=== PATIENT | male | born 1940 | race Caucasian/White ===

== ENCOUNTER 2016-11-29 07:20 | Day surgery (SDC) | payer OTHER ==
[~2016-11-29] VITALS: Ht 180.3 cm; Wt 74.4 kg
[~2016-11-29 07:20] MED LIST: ALLO100T PO; ATOR20TA PO; FURO20TA3 PO; LOSA100T27 PO; METO25TA3 PO; POTA1TAB64 PO; TRAZ50TA2 PO; WARF4TAB33 PO; WARF6TAB21 PO
[2016-11-29] MEDS ORDERED: IODIXANOL 320MG/ML 100ML BTL IV ONE (07:22)
[2016-11-29] MEDS ORDERED: LIDOCAINE 2%HCL (LOCAL ANESTH.) INJ 20ML MDV ONE (07:22)
[2016-11-29 08:41] LABS: INR 1.27 (0.9-1.15); Prothrombin Time 13.9 sec (9.37-12.3)
[2016-11-29] MEDS ORDERED: MIDAZOLAM HCL 1MG/1ML-2 ML VIAL ONE (08:52)
[2016-11-29] MEDS ORDERED: VERAPAMIL 2.5MG/ML INJ 2ML VIAL IV ONE (08:52)
[2016-11-29] MEDS ORDERED: fentaNYL CITRATE 100 MCG/2 ML VL ONE (08:52)
[2016-11-29] MEDS ORDERED: ANGIOMAX 250 MG VIAL IV ONE (08:53)
[2016-11-29] MEDS ORDERED: EPTIFIBATIDE INJ (2MG/ML) 10ML VIAL IV ONE (08:53)
[2016-11-29] MEDS ORDERED: SODIUM CHL 0.9% 0 ML ONE (08:54)
[2016-11-29] MEDS ORDERED: FUROSEMIDE 20 MG/2 ML VIAL ONE (09:10)
[2016-11-29] MEDS ORDERED: HEPARIN SODIUM (PORCINE) 5000 UNITS/ML 1ML VIAL ONE (09:23)
[2016-12-31] MEDS ORDERED: DOCU100C8 PO (13:40)
[2016-12-31] MEDS ORDERED: FER325T PO (13:40)
[2016-12-31] MEDS ORDERED: POTA20TA53 PO (13:40)
[2016-12-31] MEDS ORDERED: TRAM50TA2 PO ×2 (13:40→16:58)
[2016-12-31] MEDS ORDERED: PANT40T PO (13:40)
[2016-12-31] MEDS ORDERED: ASPI81CH43 PO ×2 (13:40→16:43)
[2016-12-31] MEDS ORDERED: ALL100T PO (13:40)
[2016-12-31] MEDS ORDERED: FURO40TA4 PO (13:40)
[2017-01-04] MEDS ORDERED: AMIO200T33 PO (12:00)
== END 2016-11-29 13:30 | disposition home or self-care (01) ==
LOC: CATH 07:20
PROVIDERS: ATTEND Internal Medicine
DX: I25.10 Atherosclerotic heart disease of native coronary artery without angina pectoris (principal); I35.0 Nonrheumatic aortic (valve) stenosis
CPT/HCPCS: 36415; 85610; 93458; C1760; C1769; C1894; J1644; J2250; J3010; J7030; Q9967; 99152

== ENCOUNTER 2024-02-07 09:30 | Inpatient (IN) | payer OTHER ==
[~2024-02-07] VITALS: Ht 180.3 cm; Wt 87.7 kg
[~2024-02-07 09:30] MED LIST changes: +ALL100T PO; -ALLO100T PO; +AMIO200T33 PO; +ASPI81CH43 PO; -ATOR20TA PO; +DOCU-265 PO; +FER325T PO; -FURO20TA3 PO; +FURO40TA4 PO; -LOSA100T27 PO; -METO25TA3 PO; +PANT40T PO; +POTA-220 PO; -POTA1TAB64 PO; +TRAM50TA2 PO; +TRAZ-227 PO; -TRAZ50TA2 PO; +WARF-112 PO; +WARF-113 PO; -WARF4TAB33 PO; -WARF6TAB21 PO
[2024-02-07 10:37] LABS: Urine Bacteria None Seen /hpf (None Seen); Urine WBC None Seen /hpf (0 - 3)
[2024-02-07] MEDS: SODIUM CHLORIDE 0.9% 1,000 ML IV ONE (10:49)
[2024-02-07 10:51] LABS: Urine Blood Negative /uL (Negative); Urine Clarity Clear (Clear); Urine Protein, UAD Negative (Negative); Urine Specific Gravity 1.005 (1.001-1.035); Urine Urobilinogen Normal (Negative)
[2024-02-07 10:52] LABS: Urine Color Straw (Yellow)
[2024-02-07 11:13] LABS: Basophils # (auto) 0 10 ^3/uL (0-0.2); Basophils % (auto) 0.6 % (0.0-2.0); Eosinophils # (auto) 0.2 10 ^3/uL (0-0.8); Eosinophils % (auto) 2.4 % (0.0-7.0); Hemoglobin 11.6 g/dL (13.5-17.5); Lymphocytes # (auto) 0.7 10 ^3/uL (0.4-5.4); Lymphocytes % (auto) 9.2 % (10.0-50.0); Mean Corpuscular Hemoglobin 32.6 pg (28.0-32.0); Neutrophils # (auto) 5.9 10 ^3/uL (1.6-8.6); Neutrophils % (auto) 74.8 % (37.0-80.0); Platelet Count (auto) 169 10^3/uL (140-450); Red Blood Cells 3.54 10^6/uL (4.5-5.90); Red Cell Distribution Width 16.2 % (11.8-14.3); White Blood Cell 7.9 10^3/uL (4.4-10.8)
[2024-02-07 11:48] LABS: Alanine Aminotransferase 17 U/L (7-40); Albumin 3.8 g/dL (3.2-4.8); Alkaline Phosphatase 164 U/L (46-116); Anion Gap 3 (5-15); Aspartate Aminotransferase 17 U/L (13-40); BUN/Creatinine Ratio 13.7 (10.0-20.0); Bilirubin, Total 1.6 mg/dL (0.2-1.0); Blood Urea Nitrogen 13 mg/dL (9-23); Carbon Dioxide 33 mmol/L (20-30); Chloride 90 mmol/L (98-107); Glucose 107 mg/dL (74-106); Magnesium 1.7 mg/dL (1.6-2.6); Sodium 126 mmol/L (136-145)
[2024-02-07 12:22] VITALS: PULSE 81; RESP 14; O2SAT 96
[2024-02-07] MEDS: IBUPROFEN 600 MG TAB PO ONE (12:28)
[2024-02-07] MEDS: cefTRIAXone 1GM/50ML D5W 50 ML IV ONE (13:45)
[2024-02-07] MEDS ORDERED: ONDANSETRON HCL 4 MG/2 ML VIAL IV PRN (17:45)
[2024-02-07] MEDS ORDERED: MORPHINE SULFATE INJ 2 MG/ml SYRG IV PRN (17:45)
[2024-02-07] MEDS ORDERED: NITROGLYCERIN 0.4 MG SL TAB SL PRN (17:45)
[2024-02-07] MEDS ORDERED: ACETAMINOPHEN 325 MG TAB PO PRN (17:45)
[2024-02-07] MEDS: FUROSEMIDE 40 MG/4 ML VIAL IV SCH (18:00)
[2024-02-07] MEDS: AZITHROMYCIN 500MG/ 250ML 250 ML IV SCH (18:01)
[2024-02-07] MEDS: HYDROcodone-ACET 5/325MG TAB PO PRN (18:46)
[2024-02-07 21:43] VITALS: BP 137/77; PULSE 90; RESP 24; TEMP 98; O2SAT 96
[2024-02-07] MEDS ORDERED: HYDR25TA4 PO (22:28)
[2024-02-07] MEDS ORDERED: MELO15TA29 PO (22:34)
[2024-02-07] MEDS ORDERED: FLUT1AER3 IN (22:34)
[2024-02-07] MEDS ORDERED: MULT-1018 PO (22:34)
[2024-02-07] MEDS ORDERED: CYAN100056 PO (22:34)
[2024-02-07] MEDS ORDERED: CARV6.2517 PO (22:34)
[2024-02-07] MEDS ORDERED: BUSP7.5T8 PO (22:34)
[2024-02-07] MEDS ORDERED: LOSA-534 PO (22:34)
[2024-02-08] VITALS (8 sets, daily range): BP systolic 99–139; BP diastolic 41–76; PULSE 73–98; RESP 18–21; TEMP 97.6–98.1; O2SAT 92–97
[2024-02-08] MEDS: cefTRIAXone 1GM/50ML D5W 50 ML IV SCH (09:42)
[2024-02-08 11:24] LABS: Basophils # (auto) 0 10 ^3/uL (0-0.2); Basophils % (auto) 0.3 % (0.0-2.0); Eosinophils # (auto) 0.2 10 ^3/uL (0-0.8); Eosinophils % (auto) 2.4 % (0.0-7.0); Hematocrit 37.2 % (41.0-53.0); Hemoglobin 12.4 g/dL (13.5-17.5); Lymphocytes # (auto) 0.5 10 ^3/uL (0.4-5.4); Lymphocytes % (auto) 5.7 % (10.0-50.0); Mean Corpuscular Hemoglobin 32.2 pg (28.0-32.0); Mean Corpuscular Hgb Conc. 33.2 g/dL (32.0-36.0); Mean Corpuscular Volume 96.8 fL (80.0-100.0); Monocytes % (auto) 11.6 % (0.0-12.0); Neutrophils # (auto) 6.8 10 ^3/uL (1.6-8.6); Platelet Count (auto) 200 10^3/uL (140-450); Red Blood Cells 3.85 10^6/uL (4.5-5.90); Red Cell Distribution Width 16.3 % (11.8-14.3); White Blood Cell 8.5 10^3/uL (4.4-10.8)
[2024-02-08 11:39] LABS: Anion Gap 1 (5-15); Carbon Dioxide 39 mmol/L (20-30); Chloride 90 mmol/L (98-107); Sodium 130 mmol/L (136-145)
[2024-02-08 11:40] LABS: Calcium 9.8 mg/dL (8.7-10.4)
[2024-02-08 11:45] LABS: BUN/Creatinine Ratio 10.5 (10.0-20.0); Blood Urea Nitrogen 10 mg/dL (9-23); Glucose 129 mg/dL (74-106); Triglycerides 48 mg/dL (< 150)
[2024-02-08 11:46] LABS: LDL Cholesterol 65 mg/dL (< 100); Magnesium 1.7 mg/dL (1.6-2.6)
[2024-02-08 11:47] LABS: Cholesterol 177 mg/dL (< 200); HDL Cholesterol 92 mg/dL (40-59)
[2024-02-08] MEDS: AMIODARONE HCL 200 MG TAB PO ONE (12:09)
[2024-02-08] MEDS: CARVEDILOL 3.125 MG TAB PO ONE (12:10)
[2024-02-08] MEDS: LOSARTAN POTASSIUM 25 MG TAB PO ONE (12:12)
[2024-02-08] MEDS: FUROSEMIDE INJECTION 100 MG in D5W 5% 100 ML IV SCH (12:14)
[2024-02-08] MEDS: ENOXAPARIN SOD 100 MG/1 ML SYRINGE SC ONE (12:21)
[2024-02-08] MEDS: EMPAGLIFLOZIN 10 MG TAB PO SCH (13:15)
[2024-02-08] MEDS ORDERED: ALBU2TAB11 INH (13:46)
[2024-02-08] MEDS ORDERED: FLUT1AER17 IN (13:46)
[2024-02-08] MEDS: CARVEDILOL 3.125 MG TAB PO SCH (22:00)
[2024-02-08] MEDS: MORPHINE SULFATE INJ 2 MG/ml SYRG IV PRN (23:19)
[2024-02-08] MEDS: ATORVASTATIN 20 MG TAB PO SCH (23:38)
[2024-02-08] MEDS: ENOXAPARIN SOD 100 MG/1 ML SYRINGE SC SCH (23:42)
[2024-02-08] MEDS: AMIODARONE HCL 200 MG TAB PO SCH (23:45)
[2024-02-09 01:00] VITALS: BP 108/51; PULSE 96; RESP 19; TEMP 98.4; O2SAT 94
[2024-02-09 05:00] VITALS: BP 97/51; PULSE 98; RESP 17; TEMP 98.8; O2SAT 94
[2024-02-09 09:00] VITALS: BP 117/63; PULSE 95; RESP 18; TEMP 98; O2SAT 94
[2024-02-09] MEDS: ASPirin 81 mg TAB PO SCH (09:53)
[2024-02-09] MEDS: LOSARTAN POTASSIUM 25 MG TAB PO SCH (09:53)
[2024-02-09] MEDS: DOCUSATE SOD 100 MG CAP PO PRN (09:56)
[2024-02-09] MEDS: FLUTICASONE FUROATE IN SCH (09:57)
[2024-02-09] MEDS: VILANTEROL IN SCH (09:57)
[2024-02-09] MEDS: UMECLIDINIUM IN SCH (09:57)
[2024-02-09] MEDS: ENOXAPARIN SOD 100 MG/1 ML SYRINGE SC SCH (10:50)
[2024-02-09 13:00] VITALS: BP 111/62; PULSE 95; RESP 18; TEMP 98.2; O2SAT 93
[2024-02-09] MEDS: POTASSIUM EFFERVESENT TAB 25 MEQ PO ONE (13:40)
[2024-02-09] MEDS: POTASSIUM CHL 20MEQ/100ML 100 ML IV SCH (13:43)
[2024-02-09] MEDS ORDERED: EMPA1TAB PO (13:47)
[2024-02-09] MEDS ORDERED: POTA-215 PO (13:47)
[2024-02-09] MEDS ORDERED: FURO1TAB31 PO ×2 (13:47)
[2024-02-09] MEDS ORDERED: AMIO200T13 PO (13:47)
[2024-02-09] MEDS: metOLazone 5 MG TAB PO ONE (13:50)
[2024-02-09 16:44] VITALS: BP 102/57; PULSE 87
== END 2024-02-09 17:52 | disposition home or self-care (01) | DRG 177 ==
LOC: ER 09:33 → TELE 17:38 → TELE-WESTW 21:43
PROVIDERS: ADMIT Internal Medicine; ATTEND Internal Medicine
DX: J15.69 Pneumonia due to other Gram-negative bacteria (principal); I50.43 Acute on chronic combined systolic (congestive) and diastolic (congestive) heart failure; I13.0 Hypertensive heart and chronic kidney disease with heart failure and stage 1 through stage 4 chronic kidney disease, or unspecified chronic kidney disease; E87.1 Hypo-osmolality and hyponatremia; J15.9 Unspecified bacterial pneumonia; I48.0 Paroxysmal atrial fibrillation; I25.10 Atherosclerotic heart disease of native coronary artery without angina pectoris; E78.5 Hyperlipidemia, unspecified; D49.0 Neoplasm of unspecified behavior of digestive system; M10.9 Gout, unspecified; E66.9 Obesity, unspecified; E11.22 Type 2 diabetes mellitus with diabetic chronic kidney disease; N18.9 Chronic kidney disease, unspecified; I35.0 Nonrheumatic aortic (valve) stenosis; Z95.1 Presence of aortocoronary bypass graft; Z95.2 Presence of prosthetic heart valve; Z88.0 Allergy status to penicillin; Z91.041 Radiographic dye allergy status; Z68.27 Body mass index [BMI] 27.0-27.9, adult; Z87.891 Personal history of nicotine dependence; R22.1 Localized swelling, mass and lump, neck
CPT/HCPCS: 36415; 71045; 80048; 80053; 80061; 81001; 83036; 83735; 83880; 84443; 84484; 85025; 87040; 93005; 93306; 96361; 96365; 97163; G0378; J3480; J7060

== ENCOUNTER 2024-12-09 08:47 | Inpatient (IN) | payer OTHER ==
[~2024-12-09] VITALS: Ht 177.8 cm; Wt 85.1 kg
[~2024-12-09 08:47] MED LIST changes: +ALBU2TAB11 INH; +AMIO200T13 PO; -AMIO200T33 PO; +BUSP7.5T8 PO; +CARV6.2517 PO; +CYAN100056 PO; -DOCU-265 PO; +EMPA1TAB PO; -FER325T PO; +FLUT1AER17 IN; +FLUT1AER3 IN; +FURO1TAB31 PO; -FURO40TA4 PO; +HYDR25TA4 PO; +LOSA-534 PO; +MELO15TA29 PO; +MULT-1018 PO; -PANT40T PO; +POTA-215 PO; -POTA-220 PO; -TRAM50TA2 PO; -TRAZ-227 PO; -WARF-112 PO; -WARF-113 PO
--- NOTE | 2024-12-09 09:28 | ED.PDOC ---
Musculoskeletal HPI Comments 84 year old male presents to the ED with a chief complaint of bilateral lower extremities swelling onset 1 week. PMHx COPD, CHF, Gout, HTN, HLD, DM, cancer. Patient states he has been experiencing bilateral lower extremities swelling, has been taking double dose of Lasix with no improvement of symptoms. Has appointment with Top Lift Cutter, Dr. Varner on 12/15/24. Denies headache, dizziness, nausea, vomiting, chest pain, shortness of breath, fevers, chills. No other symptoms or modifying factors present at this time. Chief Complaint: Lower Extremity Time Seen by MD: 09:00 Reviewed Notes: Medications, Allergies Allergies: Coded Allergies: Penicillins (Verified Allergy, Unknown, 12/16/16) Uncoded Allergies: IV CONTRAST (Allergy, Mild, 12/16/16) Home Meds Active Scripts Potassium Chloride (Klor-Con M10) 10 Meq Tab, 1 TAB PO DAILY, #60 TAB 5 Refills Prov:NOHEMI RANDOLPH MD 02/09/24 Furosemide (Lasix) 40 Mg Tab, 40 MG PO DAILY, #30 TAB Prov:NOHEMI RANDOLPH MD 02/09/24 Furosemide (Lasix) 40 Mg Tab, 40 MG PO BID, #14 TAB Prov:NOHEMI RANDOLPH MD 02/09/24 Empagliflozin (Jardiance) 10 Mg Tab, 10 MG PO DAILY, #30 TAB Prov:NOHEMI RANDOLPH MD 02/09/24 Amiodarone HCl (Amiodarone HCl) 200 Mg Tab, 200 MG PO Q12HR for 30 Days, #60 TAB Prov:NOHEMI RANDOLPH MD 02/09/24 Aspirin (Asa) 81 Mg Ch, 81 MG PO DAILY for 120 Days Prov:ETHAN GILLESPIE MD 12/31/16 Allopurinol (ZYLOPRIM TABLET) 100 Mg Tb, 100 MG PO DAILY for 30 Days Prov:ETHAN GILLESPIE MD 12/31/16 Reported Medications Fukkcmigbgd-Xgtiywbfqmmh-Gniuv (Trelegy Ellipta 200-62.5-25 Mcg/INH) 1 Aer Aer, 1 AER IN DAILY, AER 02/08/24 Albuterol Sulfate (Albuterol Sulfate) 2 Mg Tab, 90 MCG INH DAILY, MG 02/08/24 Cyanocobalamin (B-12) 1,000 Mcg Cap, 1000 MCG PO, CAP 02/07/24 Multiple Vitamin (Multivitamins) Tab, 1 TAB PO DAILY, #90 TAB 3 Refills 02/07/24 Buspirone Hcl (Buspirone Hcl) 7.5 Mg Tab, 1 TAB PO BID, #60 TAB 3 Refills 02/07/24 Losartan Potassium (Losartan Potassium) 50 Mg Tab, 50 TAB PO DAILY, #30 TAB 5 Refills 02/07/24 Carvedilol (Coreg) 6.25 Mg Tab, 1 TAB PO BID, #180 TAB 1 Refill 02/07/24 Ezfviagwkjg-Bpnjzojqxljq-Gwymq (Trelegy Ellipta 100-62.5-25 Mcg/INH) 1 Aer Aer, 1 AER IN, AER 02/07/24 Meloxicam (Meloxicam) 15 Mg Tab, 1 TAB PO DAILY, #30 TAB 2 Refills 02/07/24 Hydrochlorothiazide (Hydrochlorothiazide) 25 Mg Tab, 1 TAB PO DAILY, #30 TAB 5 Refills 02/07/24 Information Source: Patient Mode of Arrival: Ambulatory Location: Bilateral Extremity Location: Leg Timing: Weeks Prehospital treatment: None Severity: Moderate Able to Move Extremity: Yes Bear Weight: Limited Pain: Moderate Mechanism: Spontaneous Onset of Symptoms: Spontaneous Symptoms: Swelling DVT Risk Factors: CHF Associated signs and symptoms: Swelling Past Medical History PAST MEDICAL HISTORY: CHF, COPD, DM, Gout, High Lipids, HTN Surgical History: CABG Family History Family History: Reviewed,noncontributory to illness Social History Smoker: Non-Smoker Alcohol: Denies ETOH Use Drugs: Denies Drug Use Lives In: Home Constitutional: denies: chills, diaphoresis, fatigue, fever, malaise, sweats, weakness, others EENTM: denies: blurred vision, double vision, ear bleeding, ear discharge, ear drainage, ear pain, ear ringing, eye pain, eye redness, hearing loss, mouth pain, mouth swelling, nasal discharge, nose bleeding, nose congestion, nose pain, photophobia, tearing, throat pain, throat swelling, voice changes, others Respiratory: denies: cough, hemoptysis, orthopnea, SOB at rest, shortness of breath, SOB with excertion, stridor, wheezing, others Cardiovascular: denies: chest pain, dizzy spells, diaphoresis, Dyspnea on exertion, edema, irregular heart beat, left arm pain, lightheadedness, palpitations, PND, syncope, others Gastrointestinal: denies: abdomen distended, abdominal pain, blood streaked bowels, constipated, diarrhea, dysphagia, difficulty swallowing, hematemesis, melena, nausea, poor appetite, poor fluid intake, rectal bleeding, rectal pain, vomiting, others Genitourinary: denies: burning, dysuria, flank pain, frequency, hematuria, incontinence, penile discharge, penile sore, pain, testicle pain, testicle swelling, urgency, others Neurological: denies: dizziness, fainting, headache, left sided numbness, left sided weakness, numbness, paresthesia, pre-existing deficit, right sided numbness, right sided weakness, seizure, speech problems, tingling, tremors, weakness, others Musculoskeletal: reports: others (bilateral leg swelling); denies: back pain, gout, joint pain, joint swelling, muscle pain, muscle stiffness, neck pain Integumetry: denies: bruises, change in color, change in hair/nails, dryness, laceration, lesions, lumps, rash, wounds, others Allergic/Immunocompromised: denies: Difficulty Healing, Frequent Infections, Hives, Itching, others Hematologic/Lymphatic: denies: anemia, blood clots, easy bleeding, easy bruising, swollen glands, others Endocrine: denies: excessive hunger, excessive sweating, excessive thirst, excessive urination, flushing, intolerance to cold, intolerance to heat, unexplained weight gain, unexplained weight loss, others Psychiatric: denies: anxiety, bipolar disorder, depression, hopeless, panic disorder, schizophrenia, sleepless, suicidal, others All Other Systems: Reviewed and Negative Physical Exam General Appearance: Normal HEENT: Normal ENT Inspection, Pharynx Normal, TMs Normal Neck: Full Range of Motion, Non-Tender, Normal, Normal Inspection Respiratory: Chest Non-Tender, Lungs Clear, No Accessory Muscle Use, No Respiratory Distress, Normal Breath Sounds Cardiovascular: No Edema, No JVD, No Murmur, No Gallop, Normal Peripheral Pulses, Regular Rate/Rhythm Breast Exam: Deferred Gastrointestinal: No Organomegaly, Non Tender, No Pulsatile Mass, Normal Bowel Sounds, Soft Genitalia: Deferred Pelvic: Deferred Rectal: Deferred Extremities: Other (2+ pitting edema) Musculoskeletal : Location: Bilateral Extremity Location: Leg (2+ pitting edema on bilateral lower extremities) Apperance: Normal Neurologic: Alert, police inspector II-XII nml as Tested, No Motor Deficits, Normal Affect, Normal Mood, No Sensory Deficits Cerebellar Function: Normal Reflexes: Normal Skin: Dry, Normal Color, Warm Lymphatic: No Adenopathy Was a procedure done? Was a procedure done?: No Differential Diagnosis EXT Differential Diagnosis: CHF, Compartment Syndrome X-Ray, Labs, Meds, VS Vital Signs Date Time Temp Pulse Resp B/P (MAP) Pulse Ox O2 Delivery O2 Flow Rate FiO2 12/09/24 09:40 102 12/09/24 09:07 98.2 104 17 119/74 (89) 96 98.2 Lab Test 12/09/24 09:33 Range/Units White Blood Count 7.6 4.4-10.8 10^3/uL Red Blood Count 3.67 L 4.5-5.90 10^6/uL Hemoglobin 12.2 L 13.5-17.5 g/dL Hematocrit 35.7 L 41.0-53.0 % Mean Corpuscular Volume 97.2 80.0-100.0 fL Mean Corpuscular Hemoglobin 33.3 H 28.0-32.0 pg Mean Corpuscular Hemoglobin Concent 34.2 32.0-36.0 g/dL Red Cell Distribution Width 15.3 H 11.8-14.3 % Platelet Count 209 140-450 10^3/uL Mean Platelet Volume 7.3 6.9-10.8 fL Neutrophils (%) (Auto) 73.3 37.0-80.0 % Lymphocytes (%) (Auto) 11.5 10.0-50.0 % Monocytes (%) (Auto) 11.3 0.0-12.0 % Eosinophils (%) (Auto) 3.3 0.0-7.0 % Basophils (%) (Auto) 0.6 0.0-2.0 % Neutrophils # (Auto) 5.5 1.6-8.6 10 ^3/uL Lymphocytes # (Auto) 0.9 0.4-5.4 10 ^3/uL Monocytes # (Auto) 0.9 0-1.3 10 ^3/uL Eosinophils # (Auto) 0.2 0-0.8 10 ^3/uL Basophils # (Auto) 0 0-0.2 10 ^3/uL Nucleated Red Blood Cells 0.1 % Sodium Level 127 L 136-145 mmol/L Potassium Level 4.0 3.5-5.1 mmol/L Chloride Level 88 L 98-107 mmol/L Carbon Dioxide Level 33 H 20-31 mmol/L Anion Gap 6 5-15 Blood Urea Nitrogen 29 H 9-23 mg/dL Creatinine 1.38 H 0.700-1.30 mg/dL Glomerular Filtration Rate Calc 50 >90 mL/min BUN/Creatinine Ratio 21.0 H 10.0-20.0 Serum Glucose 100 74-106 mg/dL Calcium Level 10.3 8.7-10.4 mg/dL Troponin I High Sensitivity 16 </=54 ng/L B-Type Natriuretic Peptide 109.53 0-100 pg/mL [place] [id number] Ph: [phone] DIAGNOSTIC IMAGING Diagnostic Imaging Report : [id number] Signed PATIENT: DAREN PEREZ ACCT: [id number] UNIT: [id number] : 1940 LOC: ER ROOM / BED: / AGE / SEX: 84 / M ADM STATUS: REG ER SERVICE 8 ORDERING PHYSICIAN: CAESAR PIZARRO MD PROCEDURE(s): CXRP - CHEST PORTABLE REASON: sob ORDER NUMBER(s): [id number], ACCESSION NUMBER(s): [id number] CLINICAL INFORMATION: Shortness of breath. TECHNIQUE: Single AP portable chest radiograph was obtained. COMPARISON: XY CHEST PORTABLE on DOS: 02/08/24, XY CHEST XRAY 1 VIEW on DOS: 02/06 FINDINGS: Lungs: Blunting of the right costophrenic angle suggesting small right pleural effusion with overlying atelectasis. No focal consolidation. No pneumothorax. Cardiac: Heart size is within normal limits. Postsurgical changes of prior CABG and aortic valve replacement. Pulmonary vasculature: Unremarkable. Mediastinum/sandro: Dense atherosclerotic calcification of the aortic arch. Bones: No acute osseous abnormality identified. Other: No other significant findings. IMPRESSION: 1. Small right pleural effusion with overlying atelectasis. 2. No focal consolidation. No pneumothorax. 3. Additional findings as described above. ATED BY: NICHOLAS BARTLETT DO DICTATED DATE/TIME: 12/09/24941 SIGNED BY: NICHOLAS BARTLETT DO SIGNED DATE/TIME: 12/09/24941 CC: Time of 1ST Reevaluation: 09:30 Reevaluation 1ST: Unchanged Patient Education/Counseling: Diagnosis, Treatment, Prognosis Family Education/Counseling: No Family Present Departure 1 Departure Time of Disposition: 10:52 (Patient presented with shortness of breath that was concerning for possible STEMI, ACS, PE, Pneumonia, Muscle Strain, COPD, Dissection, Acute on Chronic systolic and Diastolic dysfunction. Data: 1. I ordered and reviewed the result of at least 3 labs including a CBC, BMP, and Troponin. 2. I independently interpreted the following tests: EKG which shows sinus arrhthmia and Chest X-ray which shows cardiomegaly.Risk:This patient has a high risk of morbidity due to further diagnostic testing or treatment and may suffer from an acute cardiac or respiratory disorder but is most consitent with an acute chf exacerbation. Patient should be admitted for further workup and possible expert consultation. ) Impression: Primary Impression: Acute on chronic systolic heart failure Additional Impressions: Shortness of breath Lower extremity edema Disposition: ADMITTED INPATIENT Admit to: Med Surg Condition: Guarded Critical Care Note Critical Care Time?: Yes Critical care comment: Shortness of breath Authorized and Performed by: Caesar Pizarro MD Total critical care time: Approximately 42 minutes Due to a high probability of clinically significant, life threatening deterioration, the patient required my highest level of preparedness to intervene emergently and I personally spent this critical care time directly and personally managing the patient. This critical care time included obtaining a history; examining the patient; pulse oximetry; ordering and review of studies; arranging urgent treatment with development of a management plan; evaluation of patient's response to treatment; frequent reassessment; and, discussions with other providers. This critical care time was performed to assess and manage the high probability of imminent, life-threatening deterioration that could result in multi-organ failure. It was exclusive of separately billable procedures and treating other patients and teaching time. Please see my other sections and the rest of the note for further information on patient assessment and treatment. Stability Stability form required: No I personally scribed for CAESAR PIZARRO MD ([email or web address]) on 12/09/24 at 09:28. Electronically submitted by Yaneth Aly ([email or web address]). I personally scribed for CAESAR PIZARRO MD ([email or web address]) on 12/09/24 at 09:57. Electronically submitted by Yaneth Aly ([email or web address]). CAESAR PIZARRO MD Dec 09, 2024 09:28
--- NOTE | 2024-12-09 09:44 | DVH ---
CLINICAL INFORMATION: Shortness of breath. TECHNIQUE: Single AP portable chest radiograph was obtained. COMPARISON: XY CHEST PORTABLE on DOS: 02/08/24, XY CHEST XRAY 1 VIEW on DOS: 02/07/24 FINDINGS: Lungs: Blunting of the right costophrenic angle suggesting small right pleural effusion with overlyin g atelectasis. No focal consolidation. No pneumothorax. Cardiac: Heart size is within normal limits. Postsurgical changes of prior CABG and aortic valve repl acement. Pulmonary vasculature: Unremarkable. Mediastinum/sandro: Dense atherosclerotic calcification of the aortic arch. Bones: No acute osseous abnormality identified. Other: No other significant findings. IMPRESSION: 1. Small right pleural effusion with overlying atelectasis. 2. No focal consolidation. No pneumothorax. 3. Additional findings as described above.
[2024-12-09 09:56] LABS: Basophils # (auto) 0 10 ^3/uL (0-0.2); Basophils % (auto) 0.6 % (0.0-2.0); Eosinophils # (auto) 0.2 10 ^3/uL (0-0.8); Eosinophils % (auto) 3.3 % (0.0-7.0); Hematocrit 35.7 % (41.0-53.0); Hemoglobin 12.2 g/dL (13.5-17.5); Lymphocytes # (auto) 0.9 10 ^3/uL (0.4-5.4); Lymphocytes % (auto) 11.5 % (10.0-50.0); Mean Corpuscular Hemoglobin 33.3 pg (28.0-32.0); Mean Corpuscular Hgb Conc. 34.2 g/dL (32.0-36.0); Mean Corpuscular Volume 97.2 fL (80.0-100.0); Monocytes # (auto) 0.9 10 ^3/uL (0-1.3); Monocytes % (auto) 11.3 % (0.0-12.0); Neutrophils # (auto) 5.5 10 ^3/uL (1.6-8.6); Neutrophils % (auto) 73.3 % (37.0-80.0); Nucleated Red Blood Cells % 0.1 %; Platelet Count (auto) 209 10^3/uL (140-450); Red Blood Cells 3.67 10^6/uL (4.5-5.90); Red Cell Distribution Width 15.3 % (11.8-14.3); White Blood Cell 7.6 10^3/uL (4.4-10.8)
[2024-12-09 10:24] LABS: Anion Gap 6 (5-15); Calcium 10.3 mg/dL (8.7-10.4)
[2024-12-09 10:29] LABS: Glucose 100 mg/dL (74-106)
[2024-12-09 10:34] LABS: Blood Urea Nitrogen 29 mg/dL (9-23); Carbon Dioxide 33 mmol/L (20-31); Chloride 88 mmol/L (98-107); Sodium 127 mmol/L (136-145)
[2024-12-09] MEDS: FUROSEMIDE 40 MG/4 ML VIAL IV ONE (12:41)
[2024-12-09 12:49] VITALS: PULSE 102; RESP 20; O2SAT 96
[2024-12-09 16:00] VITALS: PULSE 102; RESP 20; O2SAT 96
[2024-12-09 16:49] LABS: Urine Bacteria None Seen /hpf (None Seen)
[2024-12-09 17:01] LABS: Urine Blood Negative /uL (Negative); Urine Clarity Clear (Clear); Urine Color Colorless (Yellow); Urine Protein, UAD Negative (Negative); Urine Specific Gravity 1.005 (1.001-1.035); Urine Squamous Epithelial Cell None Seen /hpf (<5); Urine Urobilinogen Normal (Negative)
[2024-12-09] MEDS ORDERED: MORPHINE SULFATE INJ 2 MG/ml SYRG IV PRN (22:45)
[2024-12-09] MEDS ORDERED: NITROGLYCERIN 0.4 MG SL TAB SL PRN (22:45)
[2024-12-09] MEDS ORDERED: ONDANSETRON HCL 4 MG/2 ML VIAL IV PRN (22:45)
[2024-12-09 22:56] VITALS: BP_SYST 131; BP_SYST 132; BP_DIAS 76; BP_DIAS 80; PULSE 102; PULSE 99; RESP 18; RESP 20; TEMP 97.8; TEMP 98.3; O2SAT 96
[2024-12-10] VITALS (8 sets, daily range): BP systolic 98–144; BP diastolic 51–93; PULSE 54–104; RESP 16–18; TEMP 97–97.8; O2SAT 95–97
--- NOTE | 2024-12-10 01:39 | DVHHP2 ---
Admitting Diagnosis: Generalized anasarca, Acute Hyponatremia History of Present Illness History Source: Patient Exam Limitations: No limitations HPI Mr. Giuseppe Jurado is an 84 year old male with a history of COPD, CHF, Gout, HTN, HLD, DM, cancer who presents with a chief complaint of bilateral lower extremities swelling onset x 1 week. Patient states he has been experiencing bilateral lower extremities swelling, has been taking double dose of Lasix with no improvement of symptoms. Has appointment with Boat Driver, Dr. Varner on 12/15/24. However patient reports he has exertional dyspnea and could not wait for his appointment on 12/15. Denies chest pain , headache, dizziness, nausea, vomiting, chest pain, fevers, chills. No other symptoms or modifying factors present at this time. Patient admitted for further evaluation and treatment. Home Meds Active Scripts Potassium Chloride (Klor-Con M10) 10 Meq Tab, 1 TAB PO DAILY, #60 TAB 5 Refills Prov:NOHEMI RANDOLPH MD 02/09/24 Furosemide (Lasix) 40 Mg Tab, 40 MG PO DAILY, #30 TAB Prov:NOHEMI RANDOLPH MD 02/09/24 Furosemide (Lasix) 40 Mg Tab, 40 MG PO BID, #14 TAB Prov:NOHEMI RANDOLPH MD 02/09/24 Amiodarone HCl (Amiodarone HCl) 200 Mg Tab, 200 MG PO Q12HR for 30 Days, #60 TAB Prov:NOHEMI RANDOLPH MD 02/09/24 Aspirin (Asa) 81 Mg Ch, 81 MG PO DAILY for 120 Days Prov:ETHAN GILLESPIE MD 12/31/16 Allopurinol (ZYLOPRIM TABLET) 100 Mg Tb, 100 MG PO DAILY for 30 Days Prov:ETHAN GILLESPIE MD 12/31/16 Reported Medications Qogkrhtofpt-Ocspdbgapxmf-Hxbvd (Trelegy Ellipta 200-62.5-25 Mcg/INH) 1 Aer Aer, 1 AER IN DAILY, AER 02/08/24 Albuterol Sulfate (Albuterol Sulfate) 2 Mg Tab, 90 MCG INH DAILY, MG 02/08/24 Multiple Vitamin (Multivitamins) Tab, 1 TAB PO DAILY, #90 TAB 3 Refills 02/07/24 Buspirone Hcl (Buspirone Hcl) 7.5 Mg Tab, 1 TAB PO BID, #60 TAB 3 Refills 02/07/24 Losartan Potassium (Losartan Potassium) 50 Mg Tab, 50 TAB PO DAILY, #30 TAB 5 Refills 02/07/24 Carvedilol (Coreg) 6.25 Mg Tab, 1 TAB PO BID, #180 TAB 1 Refill 02/07/24 Tjufizryyop-Ntvdaitfkyrm-Iaoku (Trelegy Ellipta 100-62.5-25 Mcg/INH) 1 Aer Aer, 1 AER IN, AER 02/07/24 Meloxicam (Meloxicam) 15 Mg Tab, 1 TAB PO DAILY, #30 TAB 2 Refills 02/07/24 Hydrochlorothiazide (Hydrochlorothiazide) 25 Mg Tab, 1 TAB PO DAILY, #30 TAB 5 Refills 02/07/24 Past Medical History Cardiac: CHF, HTN Pulmonary: COPD Central Nervous System: No pertinent Hx GI: No pertinent Hx Hemotology/Oncology: No pertinent Hx Hepatobiliary: No pertinent Hx Psychiatric: No pertinent Hx Musculoskeletal: No pertinent Hx Rheumotologic: No pertinent Hx Infectious Disease: No peritnent Hx ENT: No pertinent Hx Renal/: No pertinent Hx Endocrine: No pertinent Hx Dermatology: No pertinent Hx Others GOUT Patient Family History: Alcoholism G8 FATHER Hypertension G8 MOTHER Smoker: No Hx (Negative) Alocohol: None Drugs: None Lives with: With family Domestic Violence: Neg Review of Systems Constitutional: No symptom reported Ears, Nose, & Throat: No symptom reported Eyes: No symptom reported Pulmonary/Respiratory: Dyspnea (exertional) Cardiovascular: Edema (bilateral lower extremity ) Gastrointestinal: No symptom reported Genitourinary: No symptom reported Musculoskeletal: No symptom reported Skin: No symptom reported Psychiatric: No symptom reported Endocrine: No symptom reported Hemotologic/Lymphatic: No symptom reported H&P Exam Vital Signs Vital Signs Date Time Temp Pulse Resp B/P (MAP) Pulse Ox O2 Delivery O2 Flow Rate FiO2 12/09/24 22:56 97.8 102 20 131/76 (94) 96 97.8 12/09/24 22:56 Room Air* 0 21 General Appeara: Well developed, Well nourished, Normal Appearance Head Exam: Normal inspection Neck Exam: Normal inspection, Non-tender, Normal alignment Eye Exam: bilateral eye Normal inspection, bilateral eye PERRL, bilateral eye EOMI Ear Exam: bilateral ear Auricle normal Nasal Exam: Normal inspection Mouth: Normal Inspection Pulmonary/Respiratory: Normal inspection, Chest non-tender, Wheezing Cardiovascular/Chest: Normal inspection, Regular rate, Normal Rhythm Peripheral Pulses: 2+ Radial (R), 2+ Radial (L) Abdominal Exam: Normal bowel sounds, Soft Legs: bilateral leg swelling (+4 pitting edema BLE) Ankle Exam: bilateral ankle Swelling Foot: bilateral foot swelling Tendon/ Neuro: Normal sensation, Normal motor function TIP STITCHER Exam: Normal hearing, Normal speech, PERRL Neuro/Mental St: Alert, Oriented Appearance: Appropriate appearance, Appropriate insight Eye contact/ Speech: Cooperative, Good eye contact, Normal speech Thoughts/Psych: Normal thought pattern Skin Exam: Normal inspection, Normal color, Warm/dry Wounds right lower extremity wound Labs/Xrays Labs Test 12/09/24 16:00 12/09/24 13:24 12/09/24 09:33 Range/Units Urine Color Colorless Yellow Urine Clarity Clear Clear Urine pH 7.0 5.0-9.0 Urine Specific [place] 1.005 1.001-1.035 Urine Protein Negative Negative Urine Ketones Negative Negative Urine Blood Negative Negative /uL Urine Nitrite Negative Negative Urine Bilirubin Negative Negative Urine Urobilinogen Normal Negative mg/dL Urine Leukocyte Esterase Negative Negative /uL Urine RBC None seen 0 - 3 /hpf Urine Microscopic WBC 0-3 /HPF Urine Squamous Epithelial Cells None seen <5 /hpf Urine Bacteria None seen None Seen /hpf Urine Glucose Normal Normal mg/dL Troponin I High Sensitivity 14 </=54 ng/L White Blood Count 7.6 4.4-10.8 10^3/uL Red Blood Count 3.67 L 4.5-5.90 10^6/uL Hemoglobin 12.2 L 13.5-17.5 g/dL Hematocrit 35.7 L 41.0-53.0 % Mean Corpuscular Volume 97.2 80.0-100.0 fL Mean Corpuscular Hemoglobin 33.3 H 28.0-32.0 pg Mean Corpuscular Hemoglobin Concent 34.2 32.0-36.0 g/dL Red Cell Distribution Width 15.3 H 11.8-14.3 % Platelet Count 209 140-450 10^3/uL Mean Platelet Volume 7.3 6.9-10.8 fL Neutrophils (%) (Auto) 73.3 37.0-80.0 % Lymphocytes (%) (Auto) 11.5 10.0-50.0 % Monocytes (%) (Auto) 11.3 0.0-12.0 % Eosinophils (%) (Auto) 3.3 0.0-7.0 % Basophils (%) (Auto) 0.6 0.0-2.0 % Neutrophils # (Auto) 5.5 1.6-8.6 10 ^3/uL Lymphocytes # (Auto) 0.9 0.4-5.4 10 ^3/uL Monocytes # (Auto) 0.9 0-1.3 10 ^3/uL Eosinophils # (Auto) 0.2 0-0.8 10 ^3/uL Basophils # (Auto) 0 0-0.2 10 ^3/uL Nucleated Red Blood Cells 0.1 % Sodium Level 127 L 136-145 mmol/L Potassium Level 4.0 3.5-5.1 mmol/L Chloride Level 88 L 98-107 mmol/L Carbon Dioxide Level 33 H 20-31 mmol/L Anion Gap 6 5-15 Blood Urea Nitrogen 29 H 9-23 mg/dL Creatinine 1.38 H 0.700-1.30 mg/dL Glomerular Filtration Rate Calc 50 >90 mL/min BUN/Creatinine Ratio 21.0 H 10.0-20.0 Serum Glucose 100 74-106 mg/dL Calcium Level 10.3 8.7-10.4 mg/dL B-Type Natriuretic Peptide 109.53 0-100 pg/mL Assessment/Plan Problem List: (1) Acute on chronic systolic heart failure (2) Lower extremity edema (3) Shortness of breath Plan This is an 84 year old male with known history of coronary artery disease status post single vessel CABG (internal mammary artery to LAD), severe aortic valve stenosis status post Maze procedure in 2017, CHF with systolic and diastolic dysfunction, who presented to the hospital with bilateral lower extremity edema x 1 week and exertional dyspnea found to have 1. Acute on chronic congestive heart failure exacerbation with systolic and diastolic dysfunction 2. Bilateral lower extremity swelling secondary to 1. 3. CAD status post single vessel CABG, status post Maze procedure for aortic valve stenosis in 2017 4. Hypertension 5. Paroxysmal Afib 6. Hyponatremia Plan Admit to telemetry unit Cardiology consultation, 2D echo Continue diuresis with Lasix IV Strict I&O's, Fluid Restriction, Monitor BP Therapeutic Lovenox GI prophylaxis Monitor electrolytes replenish as needed Discussed all above with patient who verbalizes agreement and understanding of care plan. All questions were answered. Discussed with supervising MD. Plan discussed with: Patient Code Visit Code Visit Total Time (mins): 45 ARASH LISA Dec 10, 2024 01:39 NOHEMI RANDOLPH MD Dec 10, 2024 16:50
[2024-12-10] MEDS: FUROSEMIDE 40 MG/4 ML VIAL IV SCH (01:51)
[2024-12-10] MEDS ORDERED: ACETAMINOPHEN 325 MG TAB PO PRN (02:00)
[2024-12-10] MEDS ORDERED: HYDROcodone-ACET 5/325MG TAB PO PRN (02:00)
[2024-12-10 06:21] LABS: Anion Gap 10 (5-15); Calcium 9.7 mg/dL (8.7-10.4)
[2024-12-10 06:24] LABS: Carbon Dioxide 35 mmol/L (20-31); Chloride 86 mmol/L (98-107); Potassium 3.4 mmol/L (3.5-5.1); Sodium 131 mmol/L (136-145)
[2024-12-10 06:26] LABS: BUN/Creatinine Ratio 19.8 (10.0-20.0); Glucose 97 mg/dL (74-106)
[2024-12-10 06:27] LABS: Magnesium 1.8 mg/dL (1.6-2.6)
[2024-12-10 06:44] LABS: Blood Urea Nitrogen 25 mg/dL (9-23)
[2024-12-10] MEDS: ALLOPURINOL 100 MG TAB PO SCH (09:01)
[2024-12-10] MEDS: ASPirin 81 mg TAB PO SCH (09:02)
[2024-12-10] MEDS: FAMOTIDINE 20 MG TAB PO SCH (09:03)
[2024-12-10] MEDS: MULTIPLE VITAMIN TAB PO SCH (09:03)
[2024-12-10] MEDS: hydroCHLOROthiazide 25 MG TAB PO SCH (09:04)
[2024-12-10] MEDS: ENOXAPARIN SOD 100 MG/1 ML SYRINGE SC SCH (09:05)
[2024-12-10] MEDS: AMIODARONE HCL 200 MG TAB PO SCH (10:00)
[2024-12-10] MEDS: LOSARTAN POTASSIUM 50 MG TAB PO SCH (10:00)
[2024-12-10] MEDS ORDERED: MELOXICAM PO SCH (10:00)
[2024-12-10] MEDS: CARVEDILOL 3.125 MG TAB PO SCH (14:36)
--- NOTE | 2024-12-10 19:42 | DVHSR ---
APPROVED REPORT EXAM: Two-dimensional and M-mode echocardiogram with Doppler and color Doppler. Blood Pressure: 136/75 mmHg INDICATION Heart Failure Surgery/Intervention Valve Replacement: Type: AV CABG: RISK FACTORS Height: 5'10", Weight: 189 DIMENSIONS LVDd4.3 (3.8-5.7cm)LA (2D)4.6 (1.9-4.0cm)Aortic Root (2.0-3.7cm) LVDs2.6 (2.5-4.0cm)LA (MM) (1.9-4.0cm)Aortic Cusp Exc (1.5-2.0cm) EF (%) 69.0 (55-70%)Rt. Atrium4.4 (1.9-4.0cm)Asc. Aorta cm IVSd1.6 (0.7-1.1cm)RV (D) (1.8-2.4cm) PWd1.0 (0.7-1.1cm) Mitral Valve MitralMitral Stenosis E wave0.73m/sMV Mean GR.mmHg E/A ratio0.02D MVAcm2 Aortic Valve Aortic ValveAortic Stenosis V11.15m/Taz Mean GR.11mmHg V22.20m/Taz Peak GR.19mmHg LVOT Diameter1.8 (1.8-2.4cm)Doppler AVA1.33cm2 Tricuspid Valve TR Velocity2.89m/s [id number] Other Information Quality : Technically LimitedRhythm : Technically limited study due to body habitus and patient position. Conclusion LVEF 55-60%, mild lvh RV normal Mild left and right atrial dilation mild pulmonary hypertension Aortic valve not well visualized, no significant hemodynamic disease IVC dilated
[2024-12-11] VITALS (7 sets, daily range): BP systolic 91–112; BP diastolic 44–66; PULSE 75–101; RESP 18–19; TEMP 97.3–98.2; O2SAT 94–98
[2024-12-11 06:40] LABS: Anion Gap 8 (5-15)
[2024-12-11 06:45] LABS: BUN/Creatinine Ratio 17.8 (10.0-20.0); Glucose 95 mg/dL (74-106)
[2024-12-11 06:54] LABS: Blood Urea Nitrogen 24 mg/dL (9-23); Calcium 10.7 mg/dL (8.7-10.4); Carbon Dioxide 39 mmol/L (20-31); Chloride 87 mmol/L (98-107); Potassium 3.4 mmol/L (3.5-5.1); Sodium 134 mmol/L (136-145)
--- NOTE | 2024-12-11 16:41 | DVHDS2 ---
Discharge Summary Date of Admission Dec 09, 2024 at 22:40 Date of Discharge: Dec 11, 2024 Labs/Diagnostic Data: Laboratory Results Test 12/11/24 06:03 12/10/24 05:22 12/09/24 16:00 12/09/24 13:24 Sodium Level 134 mmol/L (136-145) Potassium Level 3.4 mmol/L (3.5-5.1) Chloride Level 87 mmol/L (98-107) Carbon Dioxide Level 39 mmol/L (20-31) Anion Gap 8 (5-15) Blood Urea Nitrogen 24 mg/dL (9-23) Creatinine 1.35 mg/dL (0.700-1.30) Glomerular Filtration Rate Calc 52 mL/min (>90) BUN/Creatinine Ratio 17.8 (10.0-20.0) Serum Glucose 95 mg/dL (74-106) Calcium Level 10.7 mg/dL (8.7-10.4) Magnesium Level 1.8 mg/dL (1.6-2.6) Urine Color Colorless (Yellow) Urine Clarity Clear (Clear) Urine pH 7.0 (5.0-9.0) Urine Specific Buckner 1.005 (1.001-1.035) Urine Protein Negative (Negative) Urine Ketones Negative (Negative) Urine Blood Negative /uL (Negative) Urine Nitrite Negative (Negative) Urine Bilirubin Negative (Negative) Urine Urobilinogen Normal mg/dL (Negative) Urine Leukocyte Esterase Negative /uL (Negative) Urine RBC None seen /hpf (0 - 3) Urine Microscopic WBC /HPF (0-3) Urine Squamous Epithelial Cells None seen /hpf (<5) Urine Bacteria None seen /hpf (None Seen) Urine Glucose Normal mg/dL (Normal) Troponin I High Sensitivity 14 ng/L (</=54) Test 12/09/24 09:33 White Blood Count 7.6 10^3/uL (4.4-10.8) Red Blood Count 3.67 10^6/uL (4.5-5.90) Hemoglobin 12.2 g/dL (13.5-17.5) Hematocrit 35.7 % (41.0-53.0) Mean Corpuscular Volume 97.2 fL (80.0-100.0) Mean Corpuscular Hemoglobin 33.3 pg (28.0-32.0) Mean Corpuscular Hemoglobin Concent 34.2 g/dL (32.0-36.0) Red Cell Distribution Width 15.3 % (11.8-14.3) Platelet Count 209 10^3/uL (140-450) Mean Platelet Volume 7.3 fL (6.9-10.8) Neutrophils (%) (Auto) 73.3 % (37.0-80.0) Lymphocytes (%) (Auto) 11.5 % (10.0-50.0) Monocytes (%) (Auto) 11.3 % (0.0-12.0) Eosinophils (%) (Auto) 3.3 % (0.0-7.0) Basophils (%) (Auto) 0.6 % (0.0-2.0) Neutrophils # (Auto) 5.5 10 ^3/uL (1.6-8.6) Lymphocytes # (Auto) 0.9 10 ^3/uL (0.4-5.4) Monocytes # (Auto) 0.9 10 ^3/uL (0-1.3) Eosinophils # (Auto) 0.2 10 ^3/uL (0-0.8) Basophils # (Auto) 0 10 ^3/uL (0-0.2) Nucleated Red Blood Cells 0.1 % B-Type Natriuretic Peptide 109.53 pg/mL (0-100) Other Laboratory Tests 12/11/24 06:03 12/09/24 09:33 Brief Hx & Hospital Course: This is an 84 year old male with known history of coronary artery disease status post single vessel CABG (internal mammary artery to LAD), severe aortic valve stenosis status post Maze procedure in 2017, CHF with systolic and diastolic dysfunction, who presented to the hospital with bilateral lower extremity edema x 1 week and exertional dyspnea found to have acute on chronic congestive heart failure exacerbation with a diastolic dysfunction. Patient was started on IV diuretics. Patient was seen by Cardiology. Patient is currently generalized anasarca significantly improved and currently stable to be discharged. Both p atient and he is family member at bedside requesting to go home and patient is being discharged under stable condition with close follow up as an outpatient with the PCP as well as Cardiology. Condition at Discharge: Stable Final Diagnosis/Problems List This is an 84 year old male with known history of coronary artery disease status post single vessel CABG (internal mammary artery to LAD), severe aortic valve stenosis status post Maze procedure in 2017, CHF with diastolic dysfunction, who presented to the hospital with bilateral lower extremity edema x 1 week and exertional dyspnea found to have 1. Acute on chronic congestive heart failure exacerbation with systolic and diastolic dysfunction 2. Bilateral lower extremity swelling secondary to 1. 3. CAD status post single vessel CABG, status post Maze procedure for aortic valve stenosis in 2017 4. Hypertension 5. Paroxysmal Afib 6. Hyponatremia Discharge Disposition: Home SNF Discharge Will this Physician continue t: No Discharge Instruct/Medications Diet: Cardiac 2g Na,low cholest Activity: No Restrictions, As Tolerated Follow Up/Referral: Please follow up with Dr. Varner in 1-2 weeks Medications: Resume home medications Discharge Statement: "Patient was advised to return to the ER or call 911 if any headaches, dizziness, shortness of breath, chest pain, abdominal pain, bleeding, fevers, or worsening of medical condition. Patient was counseled about treatment plan, medications, possible side effects, patientverbalized understanding. All questions were answered to the best of my ability. This discharge took greater then 30 minutes in planning, reviewing documentation, counseling the patient, and discussing with other team members." ASSESSMENT ASSESSMENT Assessment This is an 84 year old male with known history of coronary artery disease status post single vessel CABG (internal mammary artery to LAD), severe aortic valve stenosis status post Maze procedure in 2017, CHF with systolic and diastolic dysfunction, who presented to the hospital with bilateral lower extremity edema x 1 week and exertional dyspnea found to have 1. Acute on chronic congestive heart failure exacerbation with systolic and diastolic dysfunction 2. Bilateral lower extremity swelling secondary to 1. 3. CAD status post single vessel CABG, status post Maze procedure for aortic valve stenosis in 2017 4. Hypertension 5. Paroxysmal Afib 6. Hyponatremia Date of Service: Dec 11, 2024 Billing Provider: NOHEMI RANDOLPH MD Common Visit Codes: NOT BILLABLE NOHEMI RANDOLPH MD Dec 11, 2024 16:41
--- NOTE | 2024-12-13 10:21 | ECG ---
[facility] Test Date: 2024-12-09 Test Time: 09:40:11 Pat Name: DAREN PEREZ Department: ER Room: 0219T Gender: M Postal Clerk: : 1940 Requested By: CAESAR PIZARRO Order Number: [id number] Reading MD: Measurements Intervals Webster Rate: 102 P: 16 LA: 155 QRS: 11 QRSD: 105 T: 163 QT: 343 QTc: 447 Interpretive Statements Sinus tachycardia Multiple ventricular premature complexes Repol abnrm suggests ischemia, lateral leads Please click the below link to view image of tracing.
== END 2024-12-11 18:29 | disposition home or self-care (01) | DRG 291 ==
LOC: ER 08:47 → OVERFLOW 22:40 → TELE-CENTR 12-10 01:20
PROVIDERS: ADMIT Internal Medicine; ATTEND Internal Medicine
DX: I11.0 Hypertensive heart disease with heart failure (principal); I50.43 Acute on chronic combined systolic (congestive) and diastolic (congestive) heart failure; E87.1 Hypo-osmolality and hyponatremia; Z95.1 Presence of aortocoronary bypass graft; I35.0 Nonrheumatic aortic (valve) stenosis; E11.9 Type 2 diabetes mellitus without complications; J44.9 Chronic obstructive pulmonary disease, unspecified; I25.10 Atherosclerotic heart disease of native coronary artery without angina pectoris; I48.0 Paroxysmal atrial fibrillation; M10.9 Gout, unspecified; E78.5 Hyperlipidemia, unspecified; Z87.891 Personal history of nicotine dependence; Z88.0 Allergy status to penicillin; Z79.899 Other long term (current) drug therapy; Z79.82 Long term (current) use of aspirin
CPT/HCPCS: 36415; 71045; 80048; 81001; 83735; 83880; 84484; 85025; 93005; 93306; 96374; 99291; G0378

== ENCOUNTER 2024-12-13 19:23 | Inpatient (IN) | payer OTHER ==
[~2024-12-13] VITALS: Ht 177.8 cm; Wt 86.1 kg
[~2024-12-13 19:23] MED LIST changes: -CYAN100056 PO; -EMPA1TAB PO
[2024-12-13] MEDS: SODIUM CHLORIDE 0.9% 500 ML IV ONE (19:30)
--- NOTE | 2024-12-13 19:30 | ED.PDOC ---
History of Present Illness HPI Comments 84 year old male with a History of CHF, HTN, COPD, and CAD was BIBA for the c/c of a Dizziness. Pt states that he was at home using his walker, when he suddenly started to feel dizzy, then proceeded to experience a mechanical fall. Pt notes that he was admitted here 3x days ago and was told that he would be feeling dizzy. Pt also notes of Alcohol use. EMS notes last BP was 92/60. No other symptoms or modifying factors reported at this time. Time Seen by MD: : Reviewed Notes: Nurses Notes, Vp [employer] Notes, Medications, Allergies Allergies: Coded Allergies: Penicillins (Verified Allergy, Unknown, 12/16/16) Uncoded Allergies: IV CONTRAST (Allergy, Mild, 12/16/16) Home Meds Active Scripts Potassium Chloride (Klor-Con M10) 10 Meq Tab, 1 TAB PO DAILY, #60 TAB 5 Refills Prov:NOHEMI RANDOLPH MD 02/09/24 Furosemide (Lasix) 40 Mg Tab, 40 MG PO DAILY, #30 TAB Prov:NOHEMI RANDOLPH MD 02/09/24 Furosemide (Lasix) 40 Mg Tab, 40 MG PO BID, #14 TAB Prov:NOHEMI RANDOLPH MD 02/09/24 Amiodarone HCl (Amiodarone HCl) 200 Mg Tab, 200 MG PO Q12HR for 30 Days, #60 TAB Prov:NOHEMI RANDOLPH MD 02/09/24 Aspirin (Asa) 81 Mg Ch, 81 MG PO DAILY for 120 Days Prov:ETHAN GILLESPIE MD 12/31/16 Allopurinol (ZYLOPRIM TABLET) 100 Mg Tb, 100 MG PO DAILY for 30 Days Prov:ETHAN GILLESPIE MD 12/31/16 Reported Medications Pwrexqfchml-Hlqxvvarttkq-Tdwvr (Trelegy Ellipta 200-62.5-25 Mcg/INH) 1 Aer Aer, 1 AER IN DAILY, AER 02/08/24 Albuterol Sulfate (Albuterol Sulfate) 2 Mg Tab, 90 MCG INH DAILY, MG 02/08/24 Multiple Vitamin (Multivitamins) Tab, 1 TAB PO DAILY, #90 TAB 3 Refills 02/07/24 Buspirone Hcl (Buspirone Hcl) 7.5 Mg Tab, 1 TAB PO BID, #60 TAB 3 Refills 02/07/24 Losartan Potassium (Losartan Potassium) 50 Mg Tab, 50 TAB PO DAILY, #30 TAB 5 Refills 02/07/24 Carvedilol (Coreg) 6.25 Mg Tab, 1 TAB PO BID, #180 TAB 1 Refill 02/07/24 Eproygkdriw-Ouaefnoffhlb-Rrrep (Trelegy Ellipta 100-62.5-25 Mcg/INH) 1 Aer Aer, 1 AER IN, AER 02/07/24 Meloxicam (Meloxicam) 15 Mg Tab, 1 TAB PO DAILY, #30 TAB 2 Refills 02/07/24 Hydrochlorothiazide (Hydrochlorothiazide) 25 Mg Tab, 1 TAB PO DAILY, #30 TAB 5 Refills 02/07/24 Information Source: Patient, Emergency Med Personnel Mode of Arrival: EMS Severity: Moderate Timing: Days Duration: Since onset, Days Prehospital treatment: None Past Medical History PAST MEDICAL HISTORY: CHF, COPD, DM, Gout, High Lipids, HTN Surgical History: CABG Family History Family History: Reviewed,noncontributory to illness Social History Smoker: Non-Smoker Alcohol: Heavy Drugs: Denies Drug Use Lives In: Home Constitutional: denies: chills, diaphoresis, fatigue, fever, malaise, sweats, weakness, others EENTM: denies: blurred vision, double vision, ear bleeding, ear discharge, ear drainage, ear pain, ear ringing, eye pain, eye redness, hearing loss, mouth pain, mouth swelling, nasal discharge, nose bleeding, nose congestion, nose pain, photophobia, tearing, throat pain, throat swelling, voice changes, others Respiratory: denies: cough, hemoptysis, orthopnea, SOB at rest, shortness of breath, SOB with excertion, stridor, wheezing, others Cardiovascular: denies: chest pain, dizzy spells, diaphoresis, Dyspnea on exertion, edema, irregular heart beat, left arm pain, lightheadedness, palpitations, PND, syncope, others Gastrointestinal: denies: abdomen distended, abdominal pain, blood streaked bowels, constipated, diarrhea, dysphagia, difficulty swallowing, hematemesis, melena, nausea, poor appetite, poor fluid intake, rectal bleeding, rectal pain, vomiting, others Genitourinary: denies: burning, dysuria, flank pain, frequency, hematuria, incontinence, penile discharge, penile sore, pain, testicle pain, testicle swelling, urgency, others Neurological: reports: dizziness; denies: fainting, headache, left sided numbness, left sided weakness, numbness, paresthesia, pre-existing deficit, right sided numbness, right sided weakness, seizure, speech problems, tingling, tremors, weakness, others Musculoskeletal: denies: back pain, gout, joint pain, joint swelling, muscle pain, muscle stiffness, neck pain, others Integumetry: denies: bruises, change in color, change in hair/nails, dryness, laceration, lesions, lumps, rash, wounds, others Allergic/Immunocompromised: denies: Difficulty Healing, Frequent Infections, Hives, Itching, others Hematologic/Lymphatic: denies: anemia, blood clots, easy bleeding, easy bruising, swollen glands, others Endocrine: denies: excessive hunger, excessive sweating, excessive thirst, excessive urination, flushing, intolerance to cold, intolerance to heat, unexplained weight gain, unexplained weight loss, others Psychiatric: denies: anxiety, bipolar disorder, depression, hopeless, panic disorder, schizophrenia, sleepless, suicidal, others All Other Systems: Reviewed and Negative Physical Exam General Appearance: Moderate Distress HEENT: Normal ENT Inspection, Pharynx Normal, TMs Normal Neck: Full Range of Motion, Non-Tender, Normal, Normal Inspection Respiratory: Chest Non-Tender, Lungs Clear, No Accessory Muscle Use, No Respiratory Distress, Normal Breath Sounds Cardiovascular: No Edema, No JVD, No Murmur, No Gallop, Normal Peripheral Pulses, Regular Rate/Rhythm Breast Exam: Deferred Gastrointestinal: No Organomegaly, Non Tender, No Pulsatile Mass, Normal Bowel Sounds, Soft Genitalia: Deferred Pelvic: Deferred Rectal: Deferred Extremities: No calf tenderness, Normal capillary refill, Normal inspection, Normal range of motion, Non-tender, No pedal edema Musculoskeletal : Apperance: Normal Neurologic: Alert, owner/operator II-XII nml as Tested, No Motor Deficits, Normal Affect, Normal Mood, No Sensory Deficits Cerebellar Function: Normal Reflexes: Normal Skin: Dry, Normal Color, Warm Lymphatic: No Adenopathy Was a procedure done? Was a procedure done?: No EKG EKG : Pulse Rate (adult): 84 Landis: Normal Cardiac Rhythm: NSR Block: None ST: Nonsp Differential Dx Considerations may include: Generalized weakness, autonomic dysfunction, generalized electrolyte imbalance X-Ray, Labs, Meds, VS Vital Signs Date Time Temp Pulse Resp B/P (MAP) Pulse Ox O2 Delivery O2 Flow Rate FiO2 12/13/24 20:00 Room Air* 0 21 12/13/24 20:00 97.6 101 18 88/52 (64) 94 97.6 12/13/24 19:56 98.4 60 16 94/58 (70) 97 98.4 12/13/24 19:43 84 12/13/24 19:30 87 Lab Test 12/13/24 20:45 12/13/24 19:40 Range/Units Troponin I High Sensitivity 22 22 </=54 ng/L White Blood Count 9.5 4.4-10.8 10^3/uL Red Blood Count 3.32 L 4.5-5.90 10^6/uL Hemoglobin 11.1 L 13.5-17.5 g/dL Hematocrit 32.0 #L 41.0-53.0 % Mean Corpuscular Volume 96.6 80.0-100.0 fL Mean Corpuscular Hemoglobin 33.5 H 28.0-32.0 pg Mean Corpuscular Hemoglobin Concent 34.7 32.0-36.0 g/dL Red Cell Distribution Width 15.6 H 11.8-14.3 % Platelet Count 187 140-450 10^3/uL Mean Platelet Volume 7.6 6.9-10.8 fL Neutrophils (%) (Auto) 72.3 37.0-80.0 % Lymphocytes (%) (Auto) 12.0 10.0-50.0 % Monocytes (%) (Auto) 11.0 0.0-12.0 % Eosinophils (%) (Auto) 4.2 0.0-7.0 % Basophils (%) (Auto) 0.5 0.0-2.0 % Neutrophils # (Auto) 6.9 1.6-8.6 10 ^3/uL Lymphocytes # (Auto) 1.1 0.4-5.4 10 ^3/uL Monocytes # (Auto) 1.1 0-1.3 10 ^3/uL Eosinophils # (Auto) 0.4 0-0.8 10 ^3/uL Basophils # (Auto) 0 0-0.2 10 ^3/uL Nucleated Red Blood Cells 0.0 % Sodium Level 130 L 136-145 mmol/L Potassium Level 3.3 L 3.5-5.1 mmol/L Chloride Level 86 L 98-107 mmol/L Carbon Dioxide Level 33 H 20-31 mmol/L Anion Gap 11 5-15 Blood Urea Nitrogen 63 H 9-23 mg/dL Creatinine 2.16 H 0.700-1.30 mg/dL Glomerular Filtration Rate Calc 29 >90 mL/min BUN/Creatinine Ratio 29.2 H 10.0-20.0 Serum Glucose 99 74-106 mg/dL Calcium Level 10.0 8.7-10.4 mg/dL B-Type Natriuretic Peptide 132.49 0-100 pg/mL Current Medications Medications (Trade) Dose Ordered Sig/Diony Route Start Time Stop Time Status Last Admin Sodium Chloride 500 ml @ 500 mls/hr Q1H ONCE IV 12/13/24 19:30 12/13/24 20:29 DC 12/13/24 19:30 CAT scan of the head is negative The patient had an IV Hep-Lock The patient was given normal saline at 500 cc bolus The BUN is 63 and the creatinine is 2.16 The patient's CBC is within normal limits The patient's chest x-ray shows: Pending at this time The patient will be admitted at this time The troponin level x2 is within normal range Images Reviewed?: Images reviewed and evaluated by me Time of 1ST Reevaluation: 19:57 Reevaluation 1ST: Unchanged Patient Education/Counseling: Diagnosis, Treatment, Prognosis Family Education/Counseling: No Family Present SEPSIS Sepsis Screen Physician Orders Urinalysis (12/13/24 19:26) Heplock Iv (12/13/24 19:26) Mechanical Supervisor (12/13/24 19:26) Blood Pressure (12/13/24 19:26) Pulse Oximetry (12/13/24 19:26) Electrocardigram (12/13/24 19:26) Troponin-I Hs (12/13/24 22:26) Electrocardigram (12/13/24 20:26) Electrocardigram (12/13/24 22:26) Head Without Contrast (12/13/24 19:26) Chest Portable (12/13/24 21:27) Vital Signs Date Time Temp Pulse Resp B/P (MAP) Pulse Ox O2 Delivery O2 Flow Rate FiO2 6/23/25 20:00 Room Air* 0 21 12/13/24 20:00 97.6 101 18 88/52 (64) 94 97.6 12/13/24 19:56 98.4 60 16 94/58 (70) 97 98.4 12/13/24 19:43 84 12/13/24 19:30 87 Laboratory Tests Test 12/13/24 19:40 White Blood Count 9.5 10^3/uL (4.4-10.8) Medications Medications Dose Ordered Sig/Diony Route Start Time Stop Time Status Last Admin Dose Admin Sodium Chloride 500 ml @ 500 mls/hr Q1H ONCE IV 12/13/24 19:30 12/13/24 20:29 DC 12/13/24 19:30 Departure 1 Departure Time of Disposition: 21:47 Impression: Primary Impression: Autonomic dysfunction Additional Impression: Generalized weakness Disposition: ADMITTED INPATIENT Admit to: Tele Condition: Fair Critical Care Note Critical Care Time?: Yes (45 min-critical care time only) Stability Stability form required: Yes Unstable for transfer: Telemetry monitoring (Telemetry monitoring required), ED Physician Assesment (Clinical assesment) Heart Score Heart Score: Heart Score Response (Comments) Value History N/A 0 EKG N/A 0 Age N/A 0 Risk Factors N/A 0 Troponin N/A 0 Total 0 I personally scribed for FAUSTINO MOBLEY MD ([email or web address]) on 12/13/24 at 19:30. Electronically submitted by Milton Bridges ([email or web address]). I personally scribed for FAUSTINO MOBLEY MD ([email or web address]) on 12/13/24 at 19:40. Electronically submitted by Chris Adams ([email or web address]). FAUSTINO MOBLEY MD Dec 13, 2024 19:30
[2024-12-13 20:00] LABS: Basophils # (auto) 0 10 ^3/uL (0-0.2); Basophils % (auto) 0.5 % (0.0-2.0); Eosinophils # (auto) 0.4 10 ^3/uL (0-0.8); Eosinophils % (auto) 4.2 % (0.0-7.0); Hemoglobin 11.1 g/dL (13.5-17.5); Lymphocytes # (auto) 1.1 10 ^3/uL (0.4-5.4); Mean Corpuscular Hemoglobin 33.5 pg (28.0-32.0); Mean Corpuscular Hgb Conc. 34.7 g/dL (32.0-36.0); Mean Corpuscular Volume 96.6 fL (80.0-100.0); Monocytes # (auto) 1.1 10 ^3/uL (0-1.3); Neutrophils # (auto) 6.9 10 ^3/uL (1.6-8.6); Neutrophils % (auto) 72.3 % (37.0-80.0); Platelet Count (auto) 187 10^3/uL (140-450); Red Blood Cells 3.32 10^6/uL (4.5-5.90); Red Cell Distribution Width 15.6 % (11.8-14.3); White Blood Cell 9.5 10^3/uL (4.4-10.8)
[2024-12-13 20:12] LABS: Anion Gap 11 (5-15)
[2024-12-13 20:17] LABS: BUN/Creatinine Ratio 29.2 (10.0-20.0); Glucose 99 mg/dL (74-106)
[2024-12-13 20:19] LABS: Blood Urea Nitrogen 63 mg/dL (9-23); Carbon Dioxide 33 mmol/L (20-31); Chloride 86 mmol/L (98-107); Potassium 3.3 mmol/L (3.5-5.1); Sodium 130 mmol/L (136-145)
--- NOTE | 2024-12-13 20:51 | DVH ---
EXAM: CT HEAD WITHOUT CONTRAST INDICATION: syncope TECHNIQUE: CT of the head without intravenous contrast. Radiation Dose : 1. Head: CT Dose: CTDI volume is 56.41 mGy. Dose-length product is 1017.14 mGy*cm The dose indicators for CT are the volume Computed Tomography (CT) Dose Index (CTDIvol) and the Dose Length Product (DLP), and are measured in units of mGy and mGy-cm, respectively. These indicators are not patient dose, but values generated from the CT scanner acquisition factors. The report includes radiation exposure data for exposures received during this examination. COMPARISON: None FINDINGS: There is no evidence of acute intracranial hemorrhage, extra-axial collection, mass effect, midline s hift, herniation or hydrocephalus. The ventricles, sulci and cisterns are age appropriate. The albert-white differentiation is intact. Patchy periventricular and subcortical white matter hypoattenuation is nonspecific but may be related to small vessel ischemic disease. The visualized paranasal sinuses and mastoid air cells are clear. The surrounding soft tissues and osseous structures are unremarkable. IMPRESSION: 1. No acute intracranial abnormality. Radiation optimization: All CT scans at this facility use at least one of these dose optimization latrice hniques: automated exposure control mA and/or kV adjustment per patient size (includes targeted exam s where dose is matched to clinical indication) or iterative reconstruction.
[2024-12-13] MEDS ORDERED: MORPHINE SULFATE INJ 2 MG/ml SYRG IV PRN (22:00)
[2024-12-13] MEDS ORDERED: ONDANSETRON HCL 4 MG/2 ML VIAL IV PRN (22:00)
[2024-12-13] MEDS ORDERED: NITROGLYCERIN 0.4 MG SL TAB SL PRN (22:00)
[2024-12-13] MEDS ORDERED: DOCUSATE SOD 100 MG CAP PO PRN (22:00)
[2024-12-13] MEDS ORDERED: HYDROcodone-ACET 5/325MG TAB PO PRN (22:00)
[2024-12-13] MEDS ORDERED: ACETAMINOPHEN 325 MG TAB PO PRN (22:00)
--- NOTE | 2024-12-13 22:35 | DVH ---
CHEST RADIOGRAPH Indication: cxr Technique: Single frontal view of the chest was obtained Comparison: XY CHEST PORTABLE on DOS: 12/09/24, XY CHEST PORTABLE on DOS: 02/08/24, XY CHEST XRAY 1 VIE W on DOS: 02/07/24 FINDINGS: Lines and Tubes: None Lungs: Hyperinflation with possible small right pleural effusion. Pleura: No effusion. No pneumothorax. Cardiomediastinal contours: Unremarkable Bones: No acute osseous abnormality. IMPRESSION: 1. No significant change from 12/09/2024.
[2024-12-13 22:51] LABS: Basophils # (auto) 0.1 10 ^3/uL (0-0.2); Basophils % (auto) 0.8 % (0.0-2.0); Eosinophils # (auto) 0.4 10 ^3/uL (0-0.8); Eosinophils % (auto) 3.7 % (0.0-7.0); Hematocrit 33.4 % (41.0-53.0); Hemoglobin 11.6 g/dL (13.5-17.5); Lymphocytes # (auto) 1.1 10 ^3/uL (0.4-5.4); Lymphocytes % (auto) 10.9 % (10.0-50.0); Mean Corpuscular Hemoglobin 33.4 pg (28.0-32.0); Mean Corpuscular Hgb Conc. 34.6 g/dL (32.0-36.0); Mean Corpuscular Volume 96.5 fL (80.0-100.0); Monocytes # (auto) 0.9 10 ^3/uL (0-1.3); Monocytes % (auto) 9.2 % (0.0-12.0); Neutrophils # (auto) 7.6 10 ^3/uL (1.6-8.6); Neutrophils % (auto) 75.4 % (37.0-80.0); Platelet Count (auto) 188 10^3/uL (140-450); Red Blood Cells 3.46 10^6/uL (4.5-5.90); Red Cell Distribution Width 15.1 % (11.8-14.3); White Blood Cell 10.1 10^3/uL (4.4-10.8)
[2024-12-13 22:53] VITALS: PULSE 94; RESP 14; O2SAT 100
[2024-12-13 23:03] LABS: Anion Gap 10 (5-15); Calcium 9.8 mg/dL (8.7-10.4)
[2024-12-13 23:08] LABS: BUN/Creatinine Ratio 28.6 (10.0-20.0); Glucose 104 mg/dL (74-106)
[2024-12-13 23:11] LABS: Carbon Dioxide 32 mmol/L (20-31); Chloride 89 mmol/L (98-107); Potassium 3.3 mmol/L (3.5-5.1); Sodium 131 mmol/L (136-145)
[2024-12-13 23:12] LABS: Blood Alcohol < 3.0 mg/dL (<10); Blood Urea Nitrogen 55 mg/dL (9-23)
[2024-12-14] VITALS (11 sets, daily range): BP systolic 84–132; BP diastolic 41–72; PULSE 95–104; RESP 14–20; TEMP 97.8–98.4; O2SAT 92–97
[2024-12-14 00:18] LABS: Urine Bacteria None Seen /hpf (None Seen)
[2024-12-14 00:35] LABS: Urine Blood Negative /uL (Negative); Urine Clarity Clear (Clear); Urine Color Light-Yellow (Yellow); Urine Hyaline Cast FEW /lpf (0 - 2); Urine Protein, UAD Negative (Negative); Urine Specific Gravity 1.013 (1.001-1.035); Urine Squamous Epithelial Cell FEW /hpf (<5); Urine Urobilinogen Normal (Negative); Urine WBC < 1 /HPF (0-3); Urine pH 5.5 (5.0-9.0)
--- NOTE | 2024-12-14 00:43 | DVHHP2 ---
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 Patient endorses recently being admitted to the hospital where he was diuresed for congestive heart failure. Patient states he went to use his front wheel wal ker when he suddenly got dizzy and legs gave out from underneath him. When the patient was 1st encountered blood pressure was 92/60. While in the emergency department the patient did receive a bolus normal saline. However patient states he still feels dizzy. Blood pressure after receiving normal saline bolus was 88/52. Patient states exertional shortness of breath has improved. Also endorses swelling of bilateral lower extremities has improved. At this time patient denies fevers, chills, shortness of breath, chest pain, palpitations, nausea, vomiting, head injury, LOC,. Cardiovascular: AFIB, CAD, CHF, hyperipidemia Pulmonary: COPD Psych: Anxiety Smoke: No ALCOHOL: occassional Drugs: None Lives: with Family Review of Systems Constitutional: Yes: Weakness; No: Fever, Chills, Sweats, Malaise, Other Eyes: No: Pain, Vision change, Conjunctivae inflammation, Eyelid inflammation, Other, Redness ENT: No: Ear pain, Ear discharge, Nose pain, Nose discharge, Nose congestion, Mouth pain, Mouth swelling, Throat pain, Throat swelling, Other Respiratory: No: Cough, Dry, Shortness of breath, SOB with excertion, Wheezing, Hemoptysis, Pleuritic Pain, Sputum, Wheezing, Other Cardiovascular: Edema, Lt Headedness; No: Chest Pain, Palpitations, Orthopnea, Paroxysmal Noc. Dyspnea, Other Gastrointestinal: No: Nausea, Vomiting, Abdominal Pain, Diarrhea, Constipation, Melena, Hematochezia, Other Genitourinary: No Dysuria, No Frequency, No Incontinence, No Hematuria, No Retention, No Other Musculoskeletal: No: other, neck pain, shoulder pain, arm pain, back pain, hand pain, leg pain, foot pain Skin: No: Rash, Lesions, Jaundice, Bruising, Other Neurological: No: Weakness, Numbness, Incoordination, Change in speech, Confusion, Seizures, Other Allergies: Coded Allergies: Penicillins (Verified Allergy, Unknown, 12/16/16) Uncoded Allergies: IV CONTRAST (Allergy, Mild, 12/16/16) Medications Current Medications Medications Dose Ordered Sig/Diony Route Start Time Stop Time Status Last Admin Dose Admin Docusate Sodium 100 mg BIDPRN PRN PO 12/13/24 22:00 Acetaminophen 650 mg Q6HP PRN PO 12/13/24 22:00 Acetaminophen/ Hydrocodone Bitart 1 tab Q4HP PRN PO 12/13/24 22:00 Ondansetron HCl 4 mg Q4HP PRN IV 12/13/24 22:00 Nitroglycerin 0.4 mg Q5MINP PRN SL 12/13/24 22:00 Morphine Sulfate 2 mg Q30M PRN IV 12/13/24 22:00 Heparin Sodium (Porcine) 5,000 units Q12HR SC 12/14/24 10:00 UNV Exam Vital Signs Vital Signs Date Time Temp Pulse Resp B/P (MAP) Pulse Ox O2 Delivery O2 Flow Rate FiO2 12/13/24 22:53 97.7 94 14 99/65 (76) 100 97.7 12/13/24 20:00 Room Air* 0 21 General Appearance: Alert, Oriented X3, Cooperative, mild distress HEENT: Atraumatic, PERRLA, EOMI Respiratory: Clear to auscultation, Normal air movement Cardiovascular: Normal S1, Normal S2 Abdominal: Normal bowel sounds, Soft Extremities: Other (Bilateral lower extremities edematous) Neuro: Normal speech Psych/Mental Status: Mental status NL, Mood NL Labs/Xrays Labs Test 12/14/24 00:00 12/13/24 23:02 12/13/24 22:40 12/13/24 19:40 Range/Units POC Glucose 106 70-106 mg/dl White Blood Count 10.1 4.4-10.8 10^3/uL Red Blood Count 3.46 L 4.5-5.90 10^6/uL Hemoglobin 11.6 L 13.5-17.5 g/dL Hematocrit 33.4 L 41.0-53.0 % Mean Corpuscular Volume 96.5 80.0-100.0 fL Mean Corpuscular Hemoglobin 33.4 H 28.0-32.0 pg Mean Corpuscular Hemoglobin Concent 34.6 32.0-36.0 g/dL Red Cell Distribution Width 15.1 H 11.8-14.3 % Platelet Count 188 140-450 10^3/uL Mean Platelet Volume 7.5 6.9-10.8 fL Neutrophils (%) (Auto) 75.4 37.0-80.0 % Lymphocytes (%) (Auto) 10.9 10.0-50.0 % Monocytes (%) (Auto) 9.2 0.0-12.0 % Eosinophils (%) (Auto) 3.7 0.0-7.0 % Basophils (%) (Auto) 0.8 0.0-2.0 % Neutrophils # (Auto) 7.6 1.6-8.6 10 ^3/uL Lymphocytes # (Auto) 1.1 0.4-5.4 10 ^3/uL Monocytes # (Auto) 0.9 0-1.3 10 ^3/uL Eosinophils # (Auto) 0.4 0-0.8 10 ^3/uL Basophils # (Auto) 0.1 0-0.2 10 ^3/uL Nucleated Red Blood Cells 0.0 % Sodium Level 131 L 136-145 mmol/L Potassium Level 3.3 L 3.5-5.1 mmol/L Chloride Level 89 L 98-107 mmol/L Carbon Dioxide Level 32 H 20-31 mmol/L Anion Gap 10 5-15 Blood Urea Nitrogen 55 H 9-23 mg/dL Creatinine 1.92 H 0.700-1.30 mg/dL Glomerular Filtration Rate Calc 34 >90 mL/min BUN/Creatinine Ratio 28.6 H 10.0-20.0 Serum Glucose 104 74-106 mg/dL Calcium Level 9.8 8.7-10.4 mg/dL Troponin I High Sensitivity 23 </=54 ng/L Plasma/Serum Blood Alcohol < 3.0 <10 mg/dL B-Type Natriuretic Peptide 132.49 0-100 pg/mL Assessment/Plan Assessment/Plan Dizziness Hypotension, with history of hypertension Fall Congestive heart failure Paroxysmal a fib Acute kidney injury likely hemodynamically mediated Plan Admit to telemetry Cardiology consult. Orthostatic vital signs. Will hold antihypertensive until BP improves. Monitor BMP. Trend to BUN/creatinine. Correct electrolytes as needed Physical therapy evaluation DVT ppx heparin sq Plan discussed with: Patient My Orders Orders - GEORGI CHEW NP Procedure Category Date Status Time Admit ADMIT 12/13/24 Transmitted 21:58 Code Status CODE 12/13/24 Transmitted 21:58 Vital Signs DAYNA 12/13/24 In Process 21:58 Review Orders With DAYNA 12/13/24 In Process Adm. 21:58 Encourage Activity As DAYNA 12/13/24 In Process Tolerate 21:58 Oxygen By Face Mask RT 12/13/24 Transmitted 21:58 Docusate Sodium PHA 12/13/24 In Process Capsule (Colace 22:00 Acetaminophen Tablet PHA 12/13/24 In Process (Tylenol Tablet) 22:00 Notify Md Of Changes DAYNA 12/13/24 In Process From Base 21:58 Advance Directive DAYNA 12/13/24 In Process 21:58 Patient Condition ORDERS 12/13/24 Transmitted 21:58 Allergies DAYNA 12/13/24 In Process 21:58 Hydrocodone-Acet PHA 12/13/24 In Process 5/325mg Tab ([place] 22:00 Ondansetron Hcl PHA 12/13/24 In Process (Zofran) 22:00 Sequential DAYNA 12/13/24 In Process Compression Device Nitroglycerin PHA 12/13/24 In Process Sublingual (Ntrostat 22:00 Morphine Sulfate PHA 12/13/24 In Process Injection 22:00 Stat Ekg For Chest DAYNA 12/13/24 In Process Pain 21:58 Notify Of Changes DAYNA 12/13/24 In Process From Base 21:58 Senior Energy Market Coordinator For DAYNA 12/13/24 In Process 24 Hours 21:58 Emergency Dysrhythmia DAYNA 12/13/24 In Process Protocol 21:58 Rhythm Strips Once DAYNA 12/13/24 In Process Every Shift 21:58 Oxygen By Nasal RT 12/13/24 Transmitted Cannula 21:58 * Cardiology Consult CONS 12/13/24 Transmitted 21:58 Pt Request For Service PT 12/14/24 Transmitted 00:31 Orthostatic Vital ORDERS 12/14/24 Transmitted Signs 00:31 Orthostatic Vital ORDERS 12/15/24 Transmitted Signs 00:31 Orthostatic Vital ORDERS 12/16/24 Transmitted Signs 00:31 Orthostatic Vital ORDERS 12/17/24 Transmitted Signs 00:31 Heparin Sodium PHA 12/14/24 Logged (Porcine) 10:00 Date of Service: Dec 14, 2024 Billing Provider: NOHEMI RANDOLPH MD Common Visit Codes: NOT BILLABLE NOHEMI RANDOLPH MD 12/14/24 0074: Review of Systems Allergies: Coded Allergies: Penicillins (Verified Allergy, Unknown, 12/16/16) Uncoded Allergies: IV CONTRAST (Allergy, Mild, 12/16/16) GEORGI CHEW NP Dec 14, 2024 00:42 NOHEMI RANDOLPH MD Dec 14, 2024 17:44
[2024-12-14] MEDS: HEPARIN SODIUM (PORCINE) 5000 UNITS/ML 1ML VIAL SC SCH (11:34)
--- NOTE | 2024-12-14 12:13 | ECG ---
[facility] Test Date: 2024-12-13 Test Time: 19:30:54 Pat Name: DAREN PEREZ Department: ED Room: 0218T A Gender: M [employer]: OWEN : 1940 Requested By: FAUSTINO MOBLEY Order Number: [id number] Reading MD: Harlan Kwong Measurements Intervals [place] Rate: 87 P: 0 ME: 143 QRS: -3 QRSD: 111 T: 169 QT: 420 QTc: 506 Interpretive Statements Unknown rhythm, irregular rate Repol abnrm suggests ischemia, lateral leads Prolonged QT interval Electronically Signed On 12-14-2024 22:56:24 PDT by Harlan Kwong Please click the below link to view image of tracing.
[2024-12-15 01:00] VITALS: BP 110/61; PULSE 103; RESP 14; TEMP 98.2; O2SAT 93
[2024-12-15 05:00] VITALS: BP 116/70; PULSE 104; RESP 14; TEMP 97.8; O2SAT 95
[2024-12-15 07:45] VITALS: RESP 16
[2024-12-15 08:00] VITALS: PULSE 103
[2024-12-15 09:30] VITALS: BP 132/68; PULSE 105; RESP 19; TEMP 97.7; O2SAT 93
[2024-12-15] MEDS ORDERED: CARV-214 OR (12:19)
[2024-12-15 12:31] VITALS: TEMP 36.5
== END 2024-12-15 13:00 | disposition home or self-care (01) | DRG 312 ==
LOC: EDBD 19:23 → ER 19:23 → OVERFLOW 21:58 → TELE-CENTR 12-14 02:45
PROVIDERS: ADMIT Nurse Practitioner Family; ATTEND Nurse Practitioner Family
DX: I95.2 Hypotension due to drugs (principal); N17.9 Acute kidney failure, unspecified; I11.0 Hypertensive heart disease with heart failure; I50.9 Heart failure, unspecified; I48.0 Paroxysmal atrial fibrillation; F41.9 Anxiety disorder, unspecified; J44.9 Chronic obstructive pulmonary disease, unspecified; E11.9 Type 2 diabetes mellitus without complications; I25.10 Atherosclerotic heart disease of native coronary artery without angina pectoris; M10.9 Gout, unspecified; Z88.0 Allergy status to penicillin; Z79.82 Long term (current) use of aspirin; Z79.899 Other long term (current) drug therapy; Z95.1 Presence of aortocoronary bypass graft; Z91.041 Radiographic dye allergy status
CPT/HCPCS: 36415; 70450; 71045; 80048; 80320; 81001; 82962; 83880; 84484; 85025; 87081; 93005; 97163; 99291; G0378